=== PATIENT | female | born 2000 | race Caucasian/White ===

== ENCOUNTER 2022-04-02 21:58 | Inpatient (IN) | payer OTHER, SELFPAY ==
[2022-04-02 22:05] VITALS: BMI 23.3
[2022-04-02 22:20] VITALS: BP 113/64; PULSE 67; RESP 14; TEMP 36.6; O2SAT 100
[2022-04-02] MEDS: traZODone HCL 50 MG TABLET PO (23:08)
--- NOTE | 2022-04-03 00:01 | PC.ADMIT ---
PT is a 21 year old Russian speaking [place] woman that arrived on this unit @ 22:15 from [facility] ED. PT signed in as a CV but approximately 15 minutes after arrival signed a 3 day notice. 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 PT reports feeling overwhelmed and seeking out help at the [facility]. The [facility] reported SI with intent to overdose on sleeping pills however patient adamantly denies this. PT reports she was simply seeking help with coping with stressors. PT has no hx of mental health and currently takes no medication other than B12 supplement due to vegetarian diet. UTOX: NEG COVID: NEG PT is alert & oriented x 4, displays good insight into situation, and is calm and cooperative for admission process. PT believes her statements were misconstrued and has no intention of hurting herself. PT denies SI/HI, AH/VH, oriented to unit. PT is a non smoker and will accept the seasonal flu vaccine but would not like to receive it this evening. All legals signed, treatment plan completed. PT tired and wishes to delay completing safety tool @ this time.
[2022-04-03 08:00] VITALS: BP 97/67; PULSE 81; RESP 14; TEMP 36.4; O2SAT 100
[2022-04-03 09:12] LABS: Estimated Average Glucose 88 mg/dL; Hemoglobin A1c % 4.7 %
[2022-04-03 09:31] LABS: Alanine Aminotransferase 12 U/L (0-31); Albumin Level 4.1 g/dL (3.5-5.0); Alkaline Phosphatase 52 U/L (39-117); Anion Gap 10 (12-20); Aspartate Amino Transferase 20 U/L (5-31); Bilirubin Total 1.1 mg/dL (0.0-1.0); Blood Urea Nitrogen 12 mg/dL (9-16); Calcium 9.6 mg/dL (8.4-10.2); Carbon Dioxide 26 mmol/L (22-29); Chloride 106 mmol/L (96-108); Cholesterol 210 mg/dL; Creatinine Clr Calc Pharmacy 105.8; Estimated Glomerular Filt Rate > 60; Glucose Fasting 82 mg/dL (60-99); HDL Cholesterol 46 mg/dL; LDL Cholesterol Calculated 152 mg/dl; Potassium 4.4 mmol/L (3.3-5.1); Sodium 138 mmol/L (135-145); Triglycerides 60 mg/dL
[2022-04-03 09:45] LABS: Thyroid Stimulating Hormone 0.92 uIU/mL (0.32-4.0); Vitamin B12 496 pg/mL (200-900)
--- NOTE | 2022-04-03 10:48 | HO.PSYADMNOT ---
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 Crisis reported pt was researching suicide via sleeping pill use, had been cutting, burning and experiencing racing thoughts. Precipitants were thought to be a recent ending of a relationship and the beginning of a new semester and the stress which surrounds this time for students. Met with pt and Raghav GOMEZ. Pt reports she is one week into a new semester and had been feeling the anxiety/stress of this changing time. She reports she has NOT been suicidal, feels she has proper social supports, an excellent academic environment, good room-mates and enjoys her major of business and [employer]. She reported a strong family support system-parents, brother, aunts, uncles, grandparents, an aunt in [place], an aunt in [place] as well as her house mates. She had consulted her family regarding feeling this anxiety in the past and her father related to her symptoms, indicating that by history members of the family have low vitamin B levels resulting in anxiety and he encouraged her to get checked and implement a regime, which she did and continues to follow. She sought eval for other resources and ideas for mgt. of sx. She denies researching suicide on line- I would never devastate my family in that way, I love them too much . I would never harm myself or others. Reports grades are straight A's, both undergrad and currently and reports the loss of her relationship was coming for a while, expected. She asks to discharge and reports her aunt from [place] is en route to offer support and assist her. Past Psychiatric History: Denies in pt, out pt. I usually talk with family and friends . Medical Evaluation Reviewed: Hospitalist Cherrial Pending Medically cleared at [facility] Medical History (Updated 04/03/22 @ 16:36 by Analilia Rodgers APRN) Adjustment disorder with mixed anxiety and depressed mood Family History: Reports father has had anxiety in the past Social History: Born in [place]. Raised by both parents. One younger brother. Good student. To [place] 2021 to begin graduate school and has had a good experience thus far. 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 She does discuss feeling hurt that people did not listen and made statements about her that were not true. No legal hx, no history Substance History: Denies Trauma History: Denies Diagnostics Vital Signs (24Hr): Vital Signs - 24 hr 04/02/22 22:20 04/03/22 08:00 Temperature 98 F 97.6 F Pulse Rate 67 81 Respiratory Rate 14 14 Blood Pressure 113/64 97/67 Pulse Oximetry 100 100 Oxygen Delivery Method Room Air Room Air BMI result Body Mass Index 23.3 Labs 04/03/22 08:10 Labs: Laboratory Results - last 48 hr 04/03/22 04/03/22 08:10 08:10 Sodium 138 Potassium 4.4 Chloride 106 Carbon Dioxide 26 Anion Gap 10 L BUN 12 Creatinine 0.72 Estim Creat Clear Calc 105.8 Estimated GFR > 60 Fasting Glucose 82 Estimat Average Glucose 88 Hemoglobin A1c % 4.7 Calcium 9.6 Total Bilirubin 1.1 H AST 20 ALT 12 Alkaline Phosphatase 52 Total Protein 7.0 Albumin 4.1 Triglycerides 60 Cholesterol 210 LDL Cholesterol, Calc 152 HDL Cholesterol 46 Vitamin B12 496 TSH 0.92 Meds/Allergies Meds Home Medications Medication Instructions Recorded Confirmed Type No Known Home Meds 04/03/22 04/03/22 History Allergies Allergies Allergy/AdvReac Type Severity Reaction Status Date / Time No Known Allergies Allergy Verified 04/02/22 22:05 Mental Status Exam Mental Status Exam Patient Appearance: Appropriate Patient Orientation: Person, Place, Time and Situation Level of Consciousness: Alert Patient Behavior: Appropriate, Talkative, Cooperative and Good Eye Contact Mood Description: Anxious Affect Description: Anxious Ability to Follow Directions: Good Speech Pattern: Spontaneous Speech Memory Description: Intact Hallucinations: None Delusions: Not Present Thought Process: Intact and Goal Oriented Thought Content: positive for Intact, positive for Goal Oriented and positive for Suicidal Ideation (denies) Depressive Symptoms: Increased Anxiety Judgement: Good Assessment & Plan Assessment & Plan (1) Adjustment disorder with mixed anxiety and depressed mood: Status: Acute Code(s): F43.23 - Adjustment disorder with mixed anxiety and depressed mood Plan 21 yo female, presented at [employer] [facility] [employer] with reports of increased sx of depression, anxiety, eating and sleeping disturbances. Crisis reports pt discussed cutting, burning, racing thoughts, researching suicide via OD however, she denies this completely, citing coming for assistance with anxiety with new school semester changes. Both crisis and pt report a recent ending of a relationship, however pt reports this is not a major issue. She denies SI, plan or intent. Her aunt has come in from [place] today to offer support, and pt asks to return to the school and resume her schedule. She will accept out patient referral resources. Plan: Discharge to family and out patient supports as she chooses. Patient educated on: diagnosis, medication risk/benefits and therapeutic strategies Guardian/Caregiver educated on: diagnosis, medication risk/benefits and therapeutic strategies Informed Consent: understands Reason for continued inpatient stay Substantial Risk for: stable for discharge Statement Statement: I have reviewed the history and physical and performed a pertinent examination on my patient. No changes have occurred unless specified. If the History and Physical was not performed prior to admission, the Hospitalist's service will be consulted for completing the admission physical. Time Spent With Patient Time: Total time managing care of this patient today 120 minutes.
[2022-04-03] MEDS: Cyanocobalamin (Vitamin B-12) 500 MCG TABLET PO (14:21)
--- NOTE | 2022-04-03 17:04 | PM.PSYDC ---
DS: Providers Provider Date of Service: 04/03/22 Date of admission: 04/02/22 21:58 Date of discharge: 04/03/22 Primary care physician: Brittany Russell DO Admitting clinician: Analilia Rodgers Attending physician on admission: Jacob Jules Consults: 04/02/22 22:12 Consult to Hospitalist Routine Consulting Provider: Hospitalist Reason For Exam: medical h&P Attending physician on discharge: Jacob Jules Discharging clinician: Analilia Rodgers DS: Diagnosis Discharge Diagnosis (1) Adjustment disorder with mixed anxiety and depressed mood: Status: Acute DS: Medications Discharge Medications Home Medications: Home Medications Medication Instructions Recorded Confirmed No Known Home Meds 04/03/22 04/03/22 Mental Status Exam Mental Status Exam Patient Appearance: Appropriate Patient Orientation: Person, Place, Time and Situation Level of Consciousness: Alert Patient Behavior: Appropriate, Talkative, Cooperative and Good Eye Contact Mood Description: Anxious Affect Description: Anxious Ability to Follow Directions: Good Speech Pattern: Spontaneous Speech Memory Description: Intact Hallucinations: None Delusions: Not Present Thought Process: Intact and Goal Oriented Thought Content: positive for Intact, positive for Goal Oriented and positive for Suicidal Ideation (denies) Depressive Symptoms: Increased Anxiety Judgement: Good Data Data Completed and Pending Completed studies during hospitalization [Text1]: 04/03/22 04/03/22 08:10 08:10 Sodium 138 Potassium 4.4 Chloride 106 Carbon Dioxide 26 Anion Gap 10 L BUN 12 Creatinine 0.72 Estim Creat Clear Calc 105.8 Estimated GFR > 60 Fasting Glucose 82 Estimat Average Glucose 88 Hemoglobin A1c % 4.7 Calcium 9.6 Total Bilirubin 1.1 H AST 20 ALT 12 Alkaline Phosphatase 52 Total Protein 7.0 Albumin 4.1 Triglycerides 60 Cholesterol 210 LDL Cholesterol, Calc 152 HDL Cholesterol 46 Vitamin B12 496 TSH 0.92 DS: Summary Hospital Course Hospital Course: Admission to adult psychiatry for sx of anxiety. Crisis reported sx of SIBS-burning, cutting, and researching methods to suicide via OD. Pt clearly denies this, citing looking for assistance in mgt of anxiety which she believes is precipitated by beginning a new semester of graduate school and changing responsibilities. Pt's aunt came in from [place] to support her. Pt denies SI, HI and will discharge with her aunt back to her shared living situation at school. Time spent discussing smoking cessation with patient: 3 to 10 minutes Status at Discharge Functional status at discharge: independent ambulation Overall status at discharge: patient is back to baseline Time Spent with Patient Time attestation: Total time managing care of this patient today 120 minutes. Time spent: Greater than 30 minutes Discharge Plan Discharge Anticipated Discharge Date/Time: 04/03/22 17:02 Patient Disposition: Home, Self-Care Discharge Diagnosis: Adjustment Reaction, with mixed features Referrals: Brittany Russell DO [Primary Care Provider] - 1 Week Discharge Medications: New cyanocobalamin (vitamin B-12) 500 mcg Tablet 500 mcg PO DAILY Qty: 0 0RF No Action No Known Home Meds Discharge Orders: Discharge Order (Routine); Ordered 04/03/22 Ordered By: Analilia Rodgers Diet: Advance to usual diet Activity on Discharge: As tolerated Stand Alone Forms: Patient Portal Discharge page, Community Support Care Plan Goals: Mood and behavioral stability Health Concerns: Mood and behavioral stability Plan of Treatment: Dorothy will return to campus with her aunt, who today has come in from [place] to support her. Follow up with out patient connections-appointments to be scheduled on 04/04/22. Call and/or return as needed. Assessment: Pt interviewed prior to discharge and found to be fully oriented and without SI/HI. She has insight and demonstrates good judgment in terms of wanting to pursue treatment She is not in imminent risk of harm to self or others and has a safety plan to go to the nearest ER or call 911 if she is feeling unsafe. She has been observed by the nursing team and has not engaged in any behaviors which suggest dangerousness to self or others and has demonstrated appropriate behaviors and impulse control.
== END 2022-04-03 17:35 | disposition home or self-care (01) | DRG 882 ==
PROVIDERS: Social Worker; Admitting Provider Psychiatry & Neurology Psychiatry; PCP Family Medicine; Visit Provider Clinical Nurse Specialist Psychiatric/Mental Health, Adult
DX: F43.23 Adjustment disorder with mixed anxiety and depressed mood (principal); R45.851 Suicidal ideations; Z91.52 Personal history of nonsuicidal self-harm
CPT/HCPCS: 36415; 80053; 80061; 82607; 83036; 84443